=== PATIENT | male | born 1980 | race Caucasian/White ===

== ENCOUNTER 2021-02-20 09:32 | Emergency (ER) | payer OTHER ==
[~2021-02-20] VITALS: Ht 180.3 cm; Wt 95.2 kg
== END 2021-02-20 16:15 | disposition home or self-care (01) ==
LOC: ER 09:32
DX: J36 Peritonsillar abscess (principal)
CPT/HCPCS: 36415; 70491; 87081; 87430; 96365-59; 96372-59; 96375-59; 99284-25; A9270; J0295; J1100; J1885; Q9967